=== PATIENT | female | born 1960 | race Caucasian/White ===

== ENCOUNTER 2023-02-06 14:52 | Outpatient (CLI) | payer OTHER, SELFPAY ==
--- NOTE | 2023-02-06 15:30 | CRLHL7_ITS ---
For Patients: As a result of the 21st Century Cures Act, medical imaging exams and procedure reports are released immediately into your electronic medical record. You may view this report before your referring provider. If you have questions, please contact your health care provider. Indication : Low back pain. COMPARISON: 06/14/2015. TECHNIQUE: Sagittal T1, T2, and STIR sequences. Axial T1 and T2 weighted sequences. FINDINGS: Stable mild lumbar curve convex the left. In sagittal plane, normal vertebral body alignment. No fractures. No vertebral body loss of height. No spondylosis. No ligamentous injury. No suspicious osseous lesions. Normal conus terminates at L1. T12-L1: No spinal canal neural foraminal narrowing. L1-2: Disc degeneration and diffuse disc bulge. Mild narrowing of spinal canal. No neural foraminal narrowing. L2-3: Progressive disc degeneration loss disc height. Posterior disc bulge. Moderate narrowing of spinal canal. No neural foraminal narrowing. Mild facet arthropathy. L3-4: Progressive disc degeneration. Loss of disc height. Posterior disc bulge. Combined with ligamentum flavum and facet hypertrophy, there is moderate severe narrowing of spinal canal. Mild narrowing of bilateral foramina. Moderate facet arthropathy. L4-5: Progressive disc degeneration. Loss disc height. Posterior disc bulge. Moderate narrowing of spinal canal. Bilateral subarticular recess narrowing with potential impingement of the traversing L5 nerve roots. Previously seen left paracentral sequestered disc fragment is no longer present. Mild narrowing of bilateral foramina. L5-S1: Progressive disc degeneration. Posterior disc bulge. No narrowing of spinal canal. No marcelo impingement of the traversing S1 nerve roots. Mild narrowing of the bilateral foramina. Degenerative changes of the SI joints. Normal paraspinal soft tissues. Bilateral renal cyst. IMPRESSION: 1. Normal alignment. No fractures 2. Interval progression of lumbar spondylosis 3. At L2-3, moderate narrowing of the spinal canal. 4. At L3-4, progressive disc degeneration. Moderate to severe narrowing of the spinal canal. Mild narrowing of the bilateral neural foramina 5. At L4-5, progressive disc degeneration. Posterior disc bulge. Moderate narrowing of the spinal canal. Potential impingement of the traversing L5 nerve roots. Mild narrowing of the bilateral neural foramina 6. At L5-S1, mild narrowing of the bilateral neural foramina Dictated by Rob Arriola MD @ 02/07/2023 11:28:57 PM (Electronically Signed)
== END 2023-02-06 14:53 | disposition home or self-care (01) ==
LOC: MRI 14:58
PROVIDERS: PCP Internal Medicine; Visit Provider Family Medicine
DX: M54.50 Low back pain, unspecified (principal); M51.36 Other intervertebral disc degeneration, lumbar region; M54.10 Radiculopathy, site unspecified; M51.27 Other intervertebral disc displacement, lumbosacral region
CPT/HCPCS: 72148

== ENCOUNTER 2023-05-15 10:15 | Outpatient (RCR) | payer OTHER, SELFPAY | END 2023-07-08 14:46 | disposition home or self-care (01) | PROVIDERS: PCP Internal Medicine; Visit Provider Family Medicine | DX: M54.16 Radiculopathy, lumbar region (principal); M54.50 Low back pain, unspecified; M62.81 Muscle weakness (generalized); Z51.89 Encounter for other specified aftercare | CPT/HCPCS: 97110; 97112; 97140; 97161 ==